=== PATIENT | male | born 1955 | race Caucasian/White ===

== ENCOUNTER 2018-03-15 14:50 | Emergency (ER) | payer BC ==
[2018-03-15 15:48] VITALS: BP 168/94
--- NOTE | 2018-03-15 15:55 | UC ---
Elbow Pain - HPI Summary HPI Summary: Patient states that 2 weeks ago he slipped and fell on pulled back. At that time he hit his right elbow. About 1-2 days later he noted it to be swollen. He denies any fever pain. He denies any other injury. He denies any joint pain and offers no other complaints. - History of Current Complaint Chief Complaint: UCUpperExtremity Stated Complaint: RIGHT ELBOW (FLUID) Time Seen by Provider: 03/15/18 15:49 Hx Obtained From: Patient Pain Intensity: 0 Aggravating Factor(s): Nothing Alleviating Factor(s): Nothing - Allergies/Home Medications Allergies/Adverse Reactions: Allergies Allergy/AdvReac Type Severity Reaction Status Date / Time HAYFEVER Allergy Dry Eyes Uncoded 03/15/18 15:42 Home Medications: Home Medications Fluticasone NASAL SPRAY 50MCG* [Flonase NASAL SPRAY 50MCG*] 1 puff INH DAILY [History Confirmed 03/15/18] Loratadine [Claritin] 10 mg PO DAILY PRN 03/15/18 [History Confirmed 03/15/18] PMH/Surg Hx/FS Hx/Imm Hx - Additional Past Medical History Additional PMH: Allergies - Surgical History Surgical History: Yes Surgery Procedure, Year, and Place: EXPLORATORY LAPAROTOMY. HERNIA REPAIR. APPENDECTOMY - Family History Known Family History: Positive: None - Social History Occupation: Employed Full-time Lives: With Family Alcohol Use: Daily Alcohol Amount: 6-8 A DAY Substance Use Type: None Smoking Status (MU): Never Smoked Tobacco - Immunization History Vaccination Up to Date: Yes Review of Systems Constitutional: Negative Skin: Negative Eyes: Negative ENT: Negative Respiratory: Negative Cardiovascular: Negative Gastrointestinal: Negative Genitourinary: Negative Motor: Negative Neurovascular: Negative Musculoskeletal: Other: - Swelling of her right elbow Neurological: Negative Psychological: Negative Is Patient Immunocompromised?: No All Other Systems Reviewed And Are Negative: Yes Physical Exam Triage Information Reviewed: Yes Appearance: Well-Appearing Vital Signs: Initial Vital Signs Temp 97.9 F 03/15/18 15:37 Pulse 82 03/15/18 15:37 Resp 16 03/15/18 15:37 BP 168/94 03/15/18 15:37 Pulse Ox 96 03/15/18 15:37 Vital Signs Reviewed: Yes Eyes: Positive: Conjunctiva Clear ENT: Positive: Normal ENT inspection Neck: Positive: Supple, Nontender, No Lymphadenopathy Respiratory: Positive: Lungs clear, Normal breath sounds Cardiovascular: Positive: RRR, No Murmur Abdomen Description: Positive: Nontender, No Organomegaly, Soft Bowel Sounds: Positive: Present Musculoskeletal: Positive: Other: - Right upper extremity exam: Shoulder, forearm, wrist and hand are atraumatic. Hand has full sensorivascular motor function. Dorsal elbow over olecranon process has swelling but no erythema, warmth or breaks in skin. Elbow has full range of motion. Neurological: Positive: Alert Psychological: Positive: Age Appropriate Behavior Skin Exam: Normal Diagnostics - Radiology No standard instances Radiology Interpretation Completed By: Radiologist - #. Negative for joint effusion, fracture, or malalignment. #. Severe dorsal soft tissue swelling; correlate for loculated soft tissue hematoma or olecranon bursitis. Elbow Pain Course/Dx - Course Course Of Treatment: NO CONCERN FOR INFECTION. EXAM C/W BURSITIS. NO FX. No concern for hypertensive emergency or urgency. BP REMAINS ELEVATED ON REPEAT ( 178/100)THUS WILL REFER TO A PRIMARY, LIST GIVEN AND PHYSICIAN REFERRAL ASSISTANCE INFO GIVEN WELL. - Differential Dx/Diagnosis Provider Diagnoses: Bursitis R elbow. hypertension on repeat bp. Discharge - Sign-Out/Discharge Documenting (check all that apply): Patient Departure - Discharge Plan Condition: Stable Disposition: HOME Patient Education Materials: Elbow Bursitis (ED), Hypertension (ED) Referrals: [facility] PHYSICIAN REFERRAL [Outside] Adryan Grullon MD [Medical Doctor] - Additional Instructions: CALL [facility] PHYSICIAN REFERRAL THIS SATURDAY. THEY WILL HELP YOU FIND A PRIMARY CARE DOCTOR. LIST OF LOCAL DOCTORS GIVEN. DO NOT USE MOTRIN, ALEVE UNLESS ADVISED BY A DOCTOR. WEAR MATEO DURING DAY AND REMOVE AT BEDTIME FOLLOW UP ORTHOPEDICS, DR GRULLON FOR THE BURSITIS. - Billing Disposition and Condition Condition: STABLE Disposition: Home
--- NOTE | 2018-03-15 16:24 | RAD ---
INDICATION: RIGHT elbow swelling post fall on posterior elbow 2 weeks ago. COMPARISON: No relevant prior exams available on the [facility] PACS for comparison. TECHNIQUE: AP, lateral, and oblique views RIGHT elbow. REPORT: Normal articular alignment. Negative for significant fat pad displacement to indicate effusion. No cortical disruption or suspicious trabecular irregularity to suggest fracture. Small enthesophyte at the medial upper condyle. Severe soft tissue swelling over the dorsum of the elbow. No conspicuous foreign body or subcutaneous emphysema. IMPRESSION: #. Negative for joint effusion, fracture, or malalignment. #. Severe dorsal soft tissue swelling; correlate for loculated soft tissue hematoma or olecranon bursitis.
== END 2018-03-15 16:42 | disposition home or self-care (01) ==
LOC: UCCORT 14:50
DX: M70.31 Other bursitis of elbow, right elbow (principal); Y93.9 Activity, unspecified; Y92.9 Unspecified place or not applicable
CPT/HCPCS: 99202; G0463

== ENCOUNTER 2018-06-09 12:43 | Day surgery (SDC) | payer BC ==
[~2018-06-09 12:43] MED LIST: Buffered Lidocaine 0.9% SYRIN* 5 ML/SYR SYRINGE INTRADERM ONE; Dexamethasone IV* 4 MG/ML 1 ML (4 MG) IV SLOW PU ONE; Famotidine IV* 10 MG/ML 2 ML (20 mg) IV ONE
[2018-06-09] MEDS ORDERED: Famotidine IV* 10 MG/ML 2 ML (20 mg) ONE (13:01)
[2018-06-09] MEDS ORDERED: Dexamethasone IV* 4 MG/ML 1 ML (4 MG) ONE (13:02)
[2018-06-09] MEDS ORDERED: ceFAZolin 2 GM PREMIX in ORs 2 GM/50 ML BAG IVPB ONE (13:38)
[2018-06-09] MEDS ORDERED: fentaNYL* 50 MCG/ML 5 ML VIAL (250 MCG VIAL) ONE (14:50)
[2018-06-09] MEDS ORDERED: Lidocaine 2% PF * 5 ML VIAL ONE ×2 (14:50→16:53)
[2018-06-09] MEDS ORDERED: Ketorolac INJ* 30 MG/ML 1 ML VIAL ONE (14:50)
[2018-06-09] MEDS ORDERED: Propofol* 10 MG/ML 20 ML BTL IV PUSH ONE (14:50)
[2018-06-09] MEDS ORDERED: Midazolam* 1 MG/ML 5 ML VIAL (5 MG) ONE (14:50)
[2018-06-09] MEDS ORDERED: Ondansetron INJ* 2 MG/ML VIAL ONE (14:50)
[2018-06-09] MEDS ORDERED: Scopolamine 1.5 mg* PATCH TRANSDERM PRN (15:17)
[2018-06-09] MEDS ORDERED: Ondansetron INJ* 2 MG/ML VIAL IV PRN (15:17)
[2018-06-09] MEDS ORDERED: DiMENhydriNATE IV* 50 MG/ML VIAL IV PUSH PRN (15:17)
[2018-06-09] MEDS ORDERED: oxyCODONE/Acetamin 5/325 MG* TAB PO PRN (15:17)
[2018-06-09] MEDS ORDERED: Naloxone* 0.4 MG/ML 1 ML VIAL IV PRN (15:17)
[2018-06-09] MEDS ORDERED: Bupivacaine 0.25% SDV* 30 ML ONE (15:28)
[2018-06-09] MEDS ORDERED: Mineral Oil Sterile, TOPICAL* 25 ML BTL ONE (16:25)
[2018-06-09] MEDS ORDERED: HYDROmorphone INJ1* 1 MG/ML SYRINGE ONE (18:20)
[2018-06-09] MEDS ORDERED: oxyCODONE/Acetamin 5/325 MG* TAB ONE (18:20)
[2018-06-09] MEDS ORDERED: fentaNYL* 50 MCG/ML 2 ML VIAL (100 MCG VIAL) ONE (18:20)
[2018-06-09] MEDS: fentaNYL* 50 MCG/ML 2 ML VIAL (100 MCG VIAL) IV PRN ×2 (18:23→18:32)
[2018-06-09] MEDS: HYDROmorphone INJ1* 1 MG/ML SYRINGE IV PRN ×2 (18:36→18:46)
[2018-06-09 18:47] VITALS: BP 169/106
--- NOTE | 2018-06-10 12:35 | OP ---
DATE OF OPERATION: 06/09/18 - [facility] DATE OF : 57 SURGEON: Onofre Hensley MD. ASSISTANTS: JHONY Padilla and JHONY Fregoso. ANESTHESIOLOGIST: Dr. Krishnamurthy. ANESTHESIA: General. PRE-OP DIAGNOSIS: Right posterior elbow wound secondary to wound dehiscence after an infected olecranon bursectomy wound. POST-OP DIAGNOSIS: Right posterior elbow wound secondary to wound dehiscence after an infected olecranon bursectomy wound. OPERATIVE PROCEDURES: 1. Debridement of skin and subcutaneous tissue and fascia in preparation for flap placement, wound measuring 4 cm x 8 cm. 2. Flexor carpi ulnaris muscle flap to right posterior elbow wound. 3. Split thickness skin grafting of right posterior elbow wound measuring 4 x 8 cm. INDICATIONS: Omar had the aforementioned elbow wound. The wound had been debrided at the other facility, where the initial surgery was done after the got infected and there was wound dehiscence. The patient was kept in house there and got IV antibiotics and has been on oral antibiotics at home. The infection has all resolved. The wound has been steadily maturing and improving and developed nice set of granulation tissue in its base. The patient saw me in the office last week and we talked about treatment options for the wound. Ultimately, I had initially recommended a rotational flap from the upper arm, but I did not thought that the skin there might not be sufficiently vascularized after the infection, tolerate much of a flap and I did not want to make the wound larger. So, I had spoken with Omar about doing the muscle flap together with skin grafting. He understands this and he wants to proceed with surgery. He understands there is a risk that the flap would not be viable and that would necessitate further surgery for the wound. He also understands the risk of infection. ESTIMATED BLOOD LOSS: 25 mL. COMPLICATIONS: None. FINDINGS: See above and below. DESCRIPTION OF PROCEDURE: Omar was seen in the preoperative holding area. The correct site, side and procedure were identified. We came back to the operating room where the arm was prepped and draped in the usual fashion. A time out was performed. The patient was positioned supine with the use of a hand table. A sterile tourniquet was placed and the arm was exsanguinated and the tourniquet inflated to 250 mmHg. I then brought the arm across the body. I went ahead and recreated the full size of the wound. The skin edges were debrided. The deep tissue was debrided off until nothing, but clean tissue remained in the posterior elbow wound. Once I had completed the debridement and had a nice clean wound, I went ahead and turned my attention to raising the flap. I made a longitudinal incision over the FCU muscle in the anterior ulnar forearm. Dissection was carried down through the fascia and then the tendon was released distally 2 cm proximal to the pisiform bone. I then raised the flap from distal to proximal, there was one dry cell assembly machine tender that was ligated near the distal end of the muscle with the Ligaclips. There was a much larger dry cell assembly machine tender about 6 cm from the olecranon that was preserved for perfusion of the muscle flap. The flap was then rotated and tunneled under the skin and draped across the posterior elbow wound. It filled the defect quite nicely. I went ahead and inset the flap around the periphery with 3-0 buried Vicryl suture. The muscle covered the defect quite nicely. I then came to the posterolateral arm and cleaned the skin and then placed some mineral oil on the skin. Tension was set at the dermatome which we used to harvest the split-thickness skin graft. The two-inch blade was utilized. The depth was set at 0.14. I then meshed the graft to 1.5 to 1. The skin graft was then turned over on to the flap and contoured the size and then sewn down to the periphery with 4-0 Vicryl suture. Please note that after the flap had been raised, I did go ahead and let down the tourniquet and made sure that the muscle was nicely perfused prior to insetting the flap. After I had inset the flap, I went ahead and irrigated out the forearm wound and closed it with 3-0 Vicryl sutures to approximate the subcutaneous tissue and then stephon. Once I had the posterior of the wound completely covered and the flap inset and the graft in place, I went ahead and washed the arm. The skin graft was covered with Adaptic and then a nice pressure dressing was applied with multiple fluffs, Webril and then a posterior and anterior slab splint with a lateral buttress was applied to keep the elbow at 90 degrees of flexion. The skin graft donor site was dressed with Xeroform and 4 x 4s. The patient was then woken up and taken to the recovery room in stable condition. [id number]/[facility] #: [id number] JC
== END 2018-06-09 19:35 | disposition home or self-care (01) ==
LOC: OR 12:43
PROVIDERS: ATTEND Orthopaedic Surgery Hand Surgery
DX: T81.32XA Disruption of internal operation (surgical) wound, not elsewhere classified, initial encounter (principal); I10 Essential (primary) hypertension; G47.33 Obstructive sleep apnea (adult) (pediatric)
CPT/HCPCS: A9270-GY; J0690; J1100; J1170; J1885; J2250; J2405; J2704; J3010